=== PATIENT | female | born 1970 | race Caucasian/White ===

== ENCOUNTER 2017-02-05 11:10 | Emergency (ER) | payer OTHER ==
[~2017-02-05] VITALS: Ht 167.6 cm; Wt 77.1 kg
[2017-02-05] MEDS ORDERED: LEVOTHYROXINE125 MCG PO (11:15)
[2017-02-05] MEDS ORDERED: NEXIUM40 MG PO (11:15)
[2017-02-05] MEDS ORDERED: XANAX0.5 MG PO (11:16)
[2017-02-05] MEDS ORDERED: CYMBALTA60 MG PO (11:16)
[2017-02-05] MEDS ORDERED: VITAMIN D32000 UNIT PO (11:17)
[2017-02-05] MEDS ORDERED: ZONISAMIDE50 M1 PO (11:17)
[2017-02-05] MEDS ORDERED: STOOL SOFTENER100 M3 PO (11:18)
[2017-02-05] MEDS ORDERED: AMITRIPTYLINE25 MG PO (11:18)
[2017-02-05] MEDS ORDERED: AMITIZA24 MCG PO (11:18)
[2017-02-05] MEDS ORDERED: MIRALAX17 GM PO (11:19)
[2017-02-05] MEDS ORDERED: GABAPENTIN600 MG PO (11:20)
[2017-02-05] MEDS ORDERED: CYTOTEC200 MCG PO (11:21)
[2017-02-05] MEDS ORDERED: PROMETHAZINE25 M1 PO (11:21)
[2017-02-05] MEDS ORDERED: RIZATRIPTAN10 MG PO (11:22)
[2017-02-05] MEDS ORDERED: ZANTAC 300300 MG PO (11:25)
[2017-02-05] MEDS ORDERED: PROAIR HFA8.5 GM INH (11:26)
[2017-02-05] MEDS ORDERED: VENTOLIN 02.5 MG/3 M INH (11:26)
[2017-02-05] MEDS ORDERED: Accuneb 0.1.25 MG/3 INH (11:28)
[2017-02-05 12:09] LABS: BASO # 0.1 10*3/uL (0.0-0.1); BASO % 0.7 % (0.0-1.0); EOS # 0.4 10*3/uL (0.0-0.4); HEMATOCRIT 34.2 % (37.0-47.0); HEMOGLOBIN 11.5 g/dl (12.0-16.0); LYMPH # 2.1 10*3/uL (1.3-4.4); LYMPH % 29.6 % (27.0-41.0); MEAN CELL VOLUME 85.5 fl (81.0-99.0); MEAN CORPUSCULAR HGB 28.8 pg (27.0-31.0); MEAN CORPUSCULAR HGB CONC 33.6 g/dl (33.0-37.0); MEAN PLATELET VOLUME 9.2 fl (9.6-12.3); MONO # 0.5 10*3/uL (0.1-1.0); MONO % 7.4 % (3.0-9.0); NEUT # 3.9 10*3/uL (2.3-7.9); NEUT % 55.7 % (47.0-73.0); PLATELET COUNT AUTOMATED 249 10*3/uL (130-400); RED CELL DISTRI WIDTH 14.2 % (0-14.5)
[2017-02-05 12:24] LABS: BILIRUBIN NEGATIVE (NEGATIVE); BLOOD NEGATIVE (NEGATIVE); CLARITY CLEAR (CLEAR); COLOR YELLOW (YELLOW); GLUCOSE NEGATIVE (NEGATIVE); KETONE NEGATIVE (NEGATIVE); LEUKO ESTERASE NEGATIVE (NEGATIVE); NITRITE NEGATIVE (NEGATIVE); SPECIFIC GRAVITY <= 1.005 (1.005-1.030); UROBILINOGEN 0.2 E.U./dl (0.2-1.0)
[2017-02-05 12:26] LABS: ALBUMIN 3.7 gm/dl (3.1-4.5); ALKALINE PHOSPHATASE 81 U/L (45-117); BUN 12 mg/dl (7-24); CHLORIDE 107 mmol/L (98-107); CREATININE 0.96 mg/dL (0.55-1.02); LIPASE 137 U/L (73-393); SGOT/AST 12 IU/L (3-35); SGPT/ALT 24 U/L (12-78); SODIUM 137 mmol/L (136-145); TOTAL PROTEIN 7.8 gm/dL (6.4-8.2)
[2017-02-05 12:34] LABS: WBC 0-2 wbc/hpf (0-5)
[2017-02-05] MEDS ORDERED: BENTYL10 MG PO (14:49)
[2017-02-05] MEDS ORDERED: ZOFRAN ODT4 MG SL (14:49)
== END 2017-02-05 15:01 | disposition home or self-care (01) ==
LOC: ED 11:10
PROVIDERS: Physician Assistant
DX: R10.13 Epigastric pain (principal); F17.200 Nicotine dependence, unspecified, uncomplicated; Z88.0 Allergy status to penicillin; Z88.2 Allergy status to sulfonamides; Z88.1 Allergy status to other antibiotic agents; Z88.5 Allergy status to narcotic agent; Z88.8 Allergy status to other drugs, medicaments and biological substances; Z79.899 Other long term (current) drug therapy

== ENCOUNTER 2017-06-25 13:31 | Emergency (ER) | payer OTHER ==
[~2017-06-25] VITALS: Ht 167.6 cm; Wt 79.4 kg
[~2017-06-25 13:31] MED LIST: AMITIZA24 MCG PO; AMITRIPTYLINE25 MG PO; Accuneb 0.1.25 MG/3 INH; BENTYL10 MG PO; CYMBALTA60 MG PO; CYTOTEC200 MCG PO; GABAPENTIN600 MG PO; LEVOTHYROXINE125 MCG PO; MIRALAX17 GM PO; NEXIUM40 MG PO; PROAIR HFA8.5 GM INH; PROMETHAZINE25 M1 PO; RIZATRIPTAN10 MG PO; STOOL SOFTENER100 M3 PO; VENTOLIN 02.5 MG/3 M INH; VITAMIN D32000 UNIT PO; XANAX0.5 MG PO; ZANTAC 300300 MG PO; ZOFRAN ODT4 MG SL; ZONISAMIDE50 M1 PO
[2017-06-25 13:51] LABS: BILIRUBIN NEGATIVE (NEGATIVE); BLOOD NEGATIVE (NEGATIVE); CLARITY SL CLOUDY (CLEAR); COLOR YELLOW (YELLOW); GLUCOSE NEGATIVE (NEGATIVE); KETONE NEGATIVE (NEGATIVE); LEUKO ESTERASE NEGATIVE (NEGATIVE); NITRITE NEGATIVE (NEGATIVE); PH 6.5 (5.0-9.0); UROBILINOGEN 0.2 E.U./dl (0.2-1.0)
[2017-06-25 14:00] LABS: BACTERIA 2+; RBC 0-2 rbc/hpf (0-2)
[2017-06-25 14:14] LABS: BASO # 0.1 10*3/uL (0.0-0.1); BASO % 0.6 % (0.0-1.0); EOS # 0.3 10*3/uL (0.0-0.4); EOS % 2.6 % (1.0-4.0); HEMATOCRIT 36.8 % (37.0-47.0); HEMOGLOBIN 12.1 g/dl (12.0-16.0); LYMPH # 3.4 10*3/uL (1.3-4.4); LYMPH % 33.9 % (27.0-41.0); MEAN CELL VOLUME 85.6 fl (81.0-99.0); MEAN CORPUSCULAR HGB 28.1 pg (27.0-31.0); MEAN CORPUSCULAR HGB CONC 32.9 g/dl (33.0-37.0); MEAN PLATELET VOLUME 8.9 fl (9.6-12.3); MONO # 0.8 10*3/uL (0.1-1.0); MONO % 7.9 % (3.0-9.0); NEUT # 5.5 10*3/uL (2.3-7.9); NEUT % 53.8 % (47.0-73.0); PLATELET COUNT AUTOMATED 389 10*3/uL (130-400); WHITE BLOOD COUNT 10.1 10*3/uL (4.8-10.8)
[2017-06-25 14:27] LABS: ALBUMIN 3.4 gm/dl (3.1-4.5); ALKALINE PHOSPHATASE 73 U/L (45-117); BUN 10 mg/dl (7-24); CHLORIDE 108 mmol/L (98-107); POTASSIUM 3.8 mmol/L (3.5-5.1); SGOT/AST 12 IU/L (3-35); SGPT/ALT 24 U/L (12-78); SODIUM 141 mmol/L (136-145); TOTAL PROTEIN 7.8 gm/dL (6.4-8.2)
== END 2017-06-25 17:20 | disposition left against medical advice (07) ==
LOC: ED 13:31
PROVIDERS: Nurse Practitioner Family; Student in an Organized Health Care Education/Training Program
DX: R10.31 Right lower quadrant pain (principal); R10.2 Pelvic and perineal pain; M54.5 Low back pain; Z79.899 Other long term (current) drug therapy; Z88.0 Allergy status to penicillin; Z88.2 Allergy status to sulfonamides; Z88.5 Allergy status to narcotic agent; Z88.6 Allergy status to analgesic agent; Z88.8 Allergy status to other drugs, medicaments and biological substances